=== PATIENT | male | born 1995 | race Caucasian/White ===

== ENCOUNTER 2020-09-14 13:43 | Emergency (ER) | payer OTHER ==
[~2020-09-14] VITALS: Ht 162.6 cm; Wt 81.7 kg
[2020-09-14] MEDS ORDERED: CEPHALEXIN500 M1 PO (15:23)
[2020-09-14] MEDS ORDERED: HYDROCODON-ACE1 EA10 PO (15:23)
== END 2020-09-14 15:33 | disposition home or self-care (01) ==
LOC: ED 13:43
DX: S61.243A Puncture wound with foreign body of left middle finger without damage to nail, initial encounter (principal); W45.8XXA Other foreign body or object entering through skin, initial encounter; F17.200 Nicotine dependence, unspecified, uncomplicated; Z91.030 Bee allergy status
CPT/HCPCS: 64450; 73140; 90471; 90715; 99283-25